=== PATIENT | female | born 1965 | race Caucasian/White ===

== ENCOUNTER → 2019-10-02 11:09 | Outpatient (CLI) | payer OTHER, SELFPAY ==
--- NOTE | ~2019-10-02 | US_ITS ---
EXAMINATION: US renal BI EXAM DATE: 10/02/2019 11:42 INDICATION: Right flank pain. TECHNIQUE: Multiple grayscale and Doppler images of the kidneys were obtained (by a technologist who performed the scan) and subsequently reviewed. There is no prior study for comparison. FINDINGS: Right kidney: There is normal contour and echogenicity. It measures 9.9 x 4.6 x 4.9 centimeters. Ech ogenic 1 cm region with some posterior shadowing, could be nephrolithiasis. Right ureter is perceptib le, measuring up to about 4 mm in diameter, but there is no caliectasis and both ureteral jets were c onfirmed in the bladder. Left kidney: There is normal contour and echogenicity. It measures 11.0 x 5.0 x 4.8 centimeters. Th ere are no focal renal lesions identified. There is no hydronephrosis. Bladder unremarkable. IMPRESSION: 1. Mild right hydroureter without caliectasis. Both jets confirmed. 2. Probable right nephrolithiasis. Reviewed, dictated and finalized at location A. PAINTER
--- NOTE | ~2019-10-02 | MM_ITS ---
EXAMINATION: MM screening missy BI w jhon HISTORY: Screening mammogram TECHNIQUE: Craniocaudal and mediolateral oblique 3-D tomosynthesis images were obtained and synthetic 2-D images were generated. CAD analysis was submitted and interpreted. COMPARISON: No prior mammogram is available for comparison at this institution. BREAST PARENCHYMAL COMPOSITION: There are scattered areas of fibroglandular density. FINDINGS: RIGHT BREAST: An asymmetry is present in the posterior third of the breast in line with the nipple ax is on the mediolateral oblique view. LEFT BREAST: There is no evidence of suspicious mass, calcification, or architectural distortion to s uggest malignancy. IMPRESSION: 1. Right breast asymmetry on the mediolateral oblique view which may represent the patient's baseline however no comparison is currently available. 2. Comparison with prior mammograms is necessary. BI-RADS Category 0: Incomplete: Needs additional imaging evaluation. Reviewed, dictated and finalized at location A. STANT OFFICE MANAGER
== END ==
DX: Z12.31 Encounter for screening mammogram for malignant neoplasm of breast (principal); N20.0 Calculus of kidney; R92.8 Other abnormal and inconclusive findings on diagnostic imaging of breast
CPT/HCPCS: 76775; 77063; 77067

== ENCOUNTER → 2019-10-20 08:41 | Outpatient (CLI) | payer OTHER, SELFPAY ==
--- NOTE | ~2019-10-20 | CT_ITS ---
EXAMINATION: CT abdomen pelvis wo con DATE: 10/20/2019 09:03 INDICATION: Right flank pain, hematuria. History of kidney stones. TECHNIQUE: Computed tomography (CT) of the abdomen and pelvis was performed without intravenous contr ast. Automated exposure control and iterative reconstruction technique were employed. Exam dose: 544 .42 mGy-cm total exam DLP. COMPARISON: None. FINDINGS: The lung bases are clear of infiltrate or consolidation. Normal heart size. No pericardial or pleural effusion. There are multiple hepatic cysts, measuring up to 2.5 cm approximate maximal diameter. The gallbladde r is present. No gallbladder wall thickening or pericholecystic fluid or inflammation is suggested. N o bile duct or pancreatic duct dilatation. Status post gastric bypass surgery. Normal adrenal glands. There is a 4.3 x 7.5 x 8.5 mm calculus of the lower pole of the right kidney There is thickening of the wall of the right renal pelvis and right ureter and mild stranding around the structures. The right renal pelvis is distended but the ureter appears of normal caliber. No righ t ureteral calculus or ureteral obstruction is evident. Consider right urinary tract infection. No left renal mass lesion or calculus or hydroureteronephrosis. No distention or thickening of the wa ll of the left renal pelvis or left ureter is evident. The urinary bladder, uterus and adnexal areas are unremarkable. There is normal caliber of the abdominal No bowel obstruction or intraperitoneal free air. Aorta. No intraperitoneal or retroperitoneal or pel alberto mass lesion or adenopathy or ascites is evident. IMPRESSION: Nonobstructing up to 8.5 mm right lower pole renal calculus Thickening of the wall of the right renal pelvis and ureter with surrounding fat stranding, suggestin g right urinary tract infection Multiple hepatic cysts Reviewed, dictated and finalized at Location A. Reviewed, dictated and finalized at location B. LER ASSEMBLER IMPRESSION: Nonobstructing up to 8.5 mm right lower pole renal calculus Thickening of the wall of the right renal pelvis and ureter with surrounding fa t stranding, suggesting right urinary tract infection Multiple hepatic cysts
== END ==
DX: N20.0 Calculus of kidney (principal)
CPT/HCPCS: 74176

== ENCOUNTER 2023-09-16 14:40 | Outpatient (CLI) | payer OTHER, SELFPAY ==
--- NOTE | ~2023-09-16 | MM_ITS ---
EXAMINATION: MM screening missy BI w jhon HISTORY: Screening TECHNIQUE: Craniocaudal and mediolateral oblique 3-D tomosynthesis images were obtained and synthetic 2-D images were generated. CAD analysis was submitted and interpreted. COMPARISON: No prior mammogram is available for comparison at this institution. BREAST PARENCHYMAL COMPOSITION: There are scattered areas of fibroglandular density. FINDINGS: There is no evidence of suspicious mass, calcification, or architectural distortion to sugg est malignancy in either breast. There has been no suspicious interval change. IMPRESSION: 1. No mammographic evidence of malignancy. 2. Recommend routine screening mammography in one year. BI-RADS Category 1: Negative Reviewed, dictated and finalized at location A. HESPIN DRIER OPERATOR
== END 2023-09-16 14:41 | disposition home or self-care (01) ==
LOC: CHSIMG 14:42
PROVIDERS: PCP Family Medicine; Visit Provider Family Medicine
DX: Z12.31 Encounter for screening mammogram for malignant neoplasm of breast (principal)
CPT/HCPCS: 77063; 77067

== ENCOUNTER 2024-10-11 09:52 | Outpatient (CLI) | payer OTHER, SELFPAY ==
--- NOTE | ~2024-10-11 | MM_ITS ---
EXAMINATION: MM screening missy BI w jhon HISTORY: Screening TECHNIQUE: Craniocaudal and mediolateral oblique 3-D tomosynthesis images were obtained and synthetic 2-D images were generated. CAD analysis was submitted and interpreted. COMPARISON: Comparison to multiple prior studies sequentially, with oldest reviewed study dated 02/09. BREAST PARENCHYMAL COMPOSITION: There are scattered areas of fibroglandular density. FINDINGS: There is no evidence of suspicious mass, calcification, or architectural distortion to sugg est malignancy in either breast. There has been no suspicious interval change. IMPRESSION: 1. No mammographic evidence of malignancy. 2. Recommend routine screening mammography in one year. BI-RADS Category 1: Negative Reviewed, dictated and finalized at location B. TELY PILOTED VEHICLE CONTROLLER
== END 2024-10-11 09:53 | disposition home or self-care (01) ==
PROVIDERS: PCP Family Medicine; Visit Provider Family Medicine
DX: Z12.31 Encounter for screening mammogram for malignant neoplasm of breast (principal)
CPT/HCPCS: 77063; 77067